=== PATIENT | female | born 1990 | race Hispanic/Latino ===

== ENCOUNTER 2019-10-03 03:57 | Observation (INO) | payer BC ==
[~2019-10-03 03:57] MED LIST: FERR324T4 PO; MO6B PO; PNV91TAB3 PO
[2019-10-03 05:16] LABS: APPEARANCE,URINE CLEAR (CLEAR)
[2019-10-03 05:17] LABS: BILIRUBIN,URINE N (NEGATIVE); COLOR,URINE YELLOW (YELLOW); GLUCOSE, URINE (UA) NEGATIVE (NEGATIVE); KETONES,URINE NEGATIVE (NEGATIVE); LEUKOCYTE ESTERASE ,URINE SMALL (NEGATIVE); NITRATE,URINE NEGATIVE (NEGATIVE); OCCULT BLOOD,URINE NEGATIVE (NEGATIVE); PROTEIN,URINE NEGATIVE (NEGATIVE); UROBILINOGEN,URINE 0.2 mg/dL (0.2-1.0)
[2019-10-03 05:28] LABS: BACTERIA,URINE Few /HPF (None Seen); RBC,URINE 0-1 /HPF (0-1)
[2019-10-03 05:41] LABS: AMPHET/METH SCREEN,URINE NEGATIVE (NEGATIVE); BARBITURATE SCREEN, URINE NEGATIVE (NEGATIVE); BENZODIAZEPINES SCREEN,URINE NEGATIVE (NEGATIVE); CANNABINOID SCREEN,URINE NEGATIVE (NEGATIVE); COCAINE SCREEN,URINE NEGATIVE (NEGATIVE); OPIATE SCREEN,URINE NEGATIVE (NEGATIVE); PHENCYCLIDINE SCREEN,URINE NEGATIVE (NEGATIVE)
[2019-10-03] MEDS ORDERED: LACTATED RINGERS 1000ML 1,000 ML IV PRN (07:09)
[2019-10-21] MEDS ORDERED: PREN-196 PO (06:31)
== END 2019-10-03 08:25 | disposition home or self-care (01) ==
LOC: EDH 03:57 → LDH 03:58
PROVIDERS: ADMIT Obstetrics & Gynecology; ATTEND Obstetrics & Gynecology
DX: O62.9 Abnormality of forces of labor, unspecified (principal); Z3A.36 36 weeks gestation of pregnancy
CPT/HCPCS: 36415; 59025; 76819; 80305; 81001; 99283; G0378 ×4; J7120 ×2

== ENCOUNTER → 2021-09-30 | Outpatient (CLI) | payer BC ==
[~2021-09-30] MED LIST changes: -FERR324T4 PO; +IOHEXOL-350 75 ML VIAL IV ONE; -MO6B PO; -PNV91TAB3 PO; +PREN-196 PO
== END | disposition home or self-care (01) ==
LOC: RAH 08:11
PROVIDERS: ATTEND Obstetrics & Gynecology
DX: O26.72 Subluxation of symphysis (pubis) in childbirth (principal)
CPT/HCPCS: 72194; Q9967